=== PATIENT | male | born 2000 | race Caucasian/White ===

== ENCOUNTER 2022-11-11 22:47 | Emergency (ER) | payer BC, MEDICAID ==
[~2022-11-11] VITALS: Ht 167.6 cm; Wt 52.2 kg
--- OUTSIDE RECORDS SUMMARY | 2022-11-12 00:37 | XMS ---
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 E.Martinez VISIT COUNT (12 MO.) 1 Trever Cruz M.C. 1 OLINDA Addison TOTAL 2 NOTE: Visits indicate total known visits. ED/UCC VISIT TRACKING (12 MO.) 11/11/2022 22:[address] [facility] [place] TYPE: Emergency COMPLAINT: - SOB 09/07/2022 14:06 [facility] TYPE: Emergency DIAGNOSES: - Fall - Concussion with loss of consciousness status unknown, initial encounter - Seizure (Adult - Prior Hx Of) - seizure, fell down stairs - Unspecified fall, initial encounter - Epilepsy, unspecified, not intractable, without status epilepticus - Acute upper respiratory infection, unspecified INPATIENT VISIT TRACKING (12 MO.) 05/25/2022 08:26 [facility] TYPE: Inpatient DIAGNOSES: - Localization-related (focal) (partial) symptomatic epilepsy and epileptic syndromes with complex partial seizures, intractable, without status epilepticus - Localization-related (focal) (partial) symptomatic epilepsy and epileptic syndromes with simple partial seizures, not intractable, without status epilepticus - Epilepsy, unspecified, not intractable, without status epilepticus - Epilepsy, unspecified, intractable, without status epilepticus - Bradycardia, unspecified - Focal epilepsy ([facility]) [G40.109] 02/02/2022 06:22 [facility] TYPE: Inpatient DIAGNOSES: - 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
[2022-11-12] MEDS ORDERED: PREDNISONE20 MG PO (04:03)
[2022-11-12] MEDS ORDERED: VENTOLIN HFA18 GM INH (04:03)
--- NOTE | 2022-11-12 16:16 | EKG ---
[facility] [address] [facility] [place] [address] Signed Sinus rhythm with sinus arrhythmia with short [place] Otherwise normal ECG No previous ECGs available Confirmed by DALIA SIU MD ([id number]) on 11/12/2022 4:16:05 PM Electronically Signed By: DALIA SIU MD 11/12/22 1616 PATIENT NAME: MEI LANGLEY Electrocardiogram DATE OF : [birth year] PHYSICIAN: DALIA SIU MD REPORT #: [id number] REPORT IS CONFIDENTIAL AND NOT TO BE RELEASED WITHOUT AUTHORIZATION
== END 2022-11-12 04:30 | disposition home or self-care (01) ==
LOC: ED 22:47
DX: J20.9 Acute bronchitis, unspecified (principal); Z91.010 Allergy to peanuts; Z20.822 Contact with and (suspected) exposure to COVID-19
CPT/HCPCS: 36415; 71045; 74177; 80053; 81003; 83690; 85025; 85379; 87502; 93005; 93010; 94640; 96361; 96375; 99285-25; C9803; J2405; J3010; J7121; J7512; Q9967; U0003